=== PATIENT | female | born 1955 | race Caucasian/White ===

== ENCOUNTER 2021-11-05 12:15 | Inpatient (IN) | payer MEDICARE ==
[2021-11-05 13:02] LABS: #Basophils 0.1 10x3/uL (0.0-0.2); #Eosinphils 0.1 10x3/uL (0.0-0.5); #Monocytes 0.6 10x3/uL (0.0-1.1); #Neutrophils 12.6 10x3/uL (1.5-8.4); %Basophils 0.6 % (0.0-2.0); %Eosinophils 0.4 % (0.0-6.0); %Lymphocytes 5.4 % (18.0-47.0); %Monocytes 4.2 % (0.0-10.0); %Neutrophils 88.8 % (40.0-75.0); Mean Corpuscular HGB CONC 31.9 g/dL (32.0-36.0); Mean Corpuscular Hemoglobin 28.7 pg (27.0-33.0); Mean Corpuscular Volume 90.1 fl (81.6-98.3); Mean Platelet Volume 11.8 fl (7.4-10.4); Platelet Count 262 10x3/uL (150-450); Red Blood Cell (RBC) Count 4.53 10x6/uL (3.90-5.03); White Blood Cell (WBC) Count 14.2 10x3/uL (3.5-10.5)
[2021-11-05 13:21] LABS: ALT (SGPT) 16 U/L (8-55); AST (SGOT) 15 U/L (5-34); Alkaline Phosphatase 198 U/L (40-110); Anion Gap 23 mmol/L (10-20); BUN (Urea Nitrogen) 37 mg/dL (9.8-20.1); Calc. Creatinine Clearance 0 mL/min (70-130); Carbon Dioxide 20 mmol/L (23-31); Chloride 94 mmol/L (98-107); Globulin 2.3 g/dL (2.4-3.5); Lipase 12 U/L (8-78); Potassium 5.4 mmol/L (3.5-5.1); Protein, Total 6.3 g/dL (5.8-8.1); Sodium 132 mmol/L (136-145)
[2021-11-05 13:23] LABS: Actual Bicarbonate (HCO3v) 18 mEq/L (22-28); Base Excess -7.5 mEq/L (-2.0 to +3.0); Calcium, Ionized (venous) 1.04 mmol/L (1.16-1.32); Chloride (VBG) 96 mmol/L (98-106); Potassium (VBG) 5.25 mmol/L (3.70-5.30); Puncture Site Other Site; RapidComm Collect By CBN; Sodium 130.8 mmol/L (133-146); pH (venous) 7.32 (7.32-7.43)
[2021-11-05 13:39] LABS: Glucose 747 mg/dL (80-115)
[2021-11-05] MEDS ORDERED: Ondansetron PF 4 MG/2 ML Vial ONE (13:42)
[2021-11-05] MEDS ORDERED: INSULIN REGULAR IN 0.9 % NACL 100 UNIT/100 ML BAG ONE (13:57)
[2021-11-05] MEDS ORDERED: NS 0.9% w/ 20 MEQ KCL 1,000 ML IV PRN ×2 (14:08)
[2021-11-05] MEDS ORDERED: Sodium Chloride 0.9% 1,000 ML IV PRN ×4 (14:08)
[2021-11-05] MEDS ORDERED: Dextrose 5 %-0.45 % NaCl 1,000 ML IV PRN (14:08)
[2021-11-05] MEDS ORDERED: Electrolyte Replacement Protocol 1 EACH IVPB PRN (14:08)
[2021-11-05 15:00] LABS: Anion Gap 21 mmol/L (10-20); BUN (Urea Nitrogen) 38 mg/dL (9.8-20.1); Calc. Creatinine Clearance 0 mL/min (70-130); Calcium 8.8 mg/dL (7.8-10.44); Carbon Dioxide 19 mmol/L (23-31); Chloride 97 mmol/L (98-107); Potassium 5.3 mmol/L (3.5-5.1); Sodium 132 mmol/L (136-145)
[2021-11-05 15:12] LABS: Glucose 788 mg/dL (80-115)
[2021-11-05] MEDS ORDERED: INSULIN REGULAR IN 0.9 % NACL 100 UNIT in Premix Bag 1 BAG IVPB SCH (15:30)
[2021-11-05 16:23] VITALS: BMI 26.4
[2021-11-05 16:36] LABS: Lactic Acid 3.9 mmol/L (0.5-2.2)
[2021-11-05 17:20] LABS: Bilirubin Neg (Negative); Blood, Urine 25 (Negative); Clarity Slightly Cloudy (Clear); Glucose, Urine (Dipstick) >=1000 mg/dL (Negative); Ketone, Urine 15 mg/dL (Negative); Leukocyte Negative (Negative); Nitrite Positive (Negative); Protein, Urine (Dipstick) 15 mg/dl (Neg-Trace); Specific Gravity, Urine 1.015 (1.002-1.036); Urobilinogen Normal mg/dL (Less than 2)
[2021-11-05 17:26] LABS: Squamous Epithelial 0-3 HPF (0-3)
[2021-11-05 17:27] LABS: Bacteria/HPF 2+ HPF (None Seen)
[2021-11-05] MEDS ORDERED: cefTRIAXone\\ROCEPHIN 1 GM in Sodium Chloride 0.9% 100 ML IVPB SCH (18:00)
[2021-11-05] MEDS ORDERED: Dextrose 50% Abboject 50 ML SYRINGE SLOW IVP PRN (18:35)
[2021-11-05] MEDS ORDERED: Dextrose 5% in Water 1,000 ML IV PRN (18:35)
[2021-11-05] MEDS ORDERED: Insulin Regular 300 UNITS/3 ML VIAL SC PRN (18:35)
[2021-11-05 18:39] LABS: Anion Gap 13 mmol/L (10-20); BUN (Urea Nitrogen) 33 mg/dL (9.8-20.1); Calc. Creatinine Clearance 46 mL/min (70-130); Calcium 7.9 mg/dL (7.8-10.44); Carbon Dioxide 21 mmol/L (23-31); Chloride 109 mmol/L (98-107); Glucose 295 mg/dL (80-115); Sodium 139 mmol/L (136-145)
[2021-11-05] MEDS ORDERED: Losartan 25 MG TAB PO SCH (21:00)
[2021-11-05] MEDS ORDERED: Ezetimibe 10 MG TAB PO SCH (21:00)
[2021-11-05] MEDS ORDERED: Aspirin 81 mg Enteric Coated Tablet PO SCH (21:00)
[2021-11-05] MEDS: Calcium Carbonate 600 MG + Vit D TAB PO SCH (21:38)
[2021-11-05] MEDS: D5 1/2 NS w/20 mEq KCL 1,000 ML IV PRN (22:06)
[2021-11-05 22:46] LABS: Anion Gap 12 mmol/L (10-20); BUN (Urea Nitrogen) 29 mg/dL (9.8-20.1); Calc. Creatinine Clearance 55 mL/min (70-130); Calcium 7.8 mg/dL (7.8-10.44); Carbon Dioxide 22 mmol/L (23-31); Chloride 113 mmol/L (98-107); Glucose 117 mg/dL (80-115); Potassium 4.6 mmol/L (3.5-5.1); Sodium 142 mmol/L (136-145)
[2021-11-06] MEDS: D5 1/2 NS w/20 mEq KCL 1,000 ML IV PRN ×2 (02:09→06:42)
[2021-11-06 04:31] LABS: Phosphorus 2.5 mg/dL (2.3-4.7)
[2021-11-06 04:34] LABS: Anion Gap 13 mmol/L (10-20); BUN (Urea Nitrogen) 26 mg/dL (9.8-20.1); Calc. Creatinine Clearance 59 mL/min (70-130); Calcium 7.5 mg/dL (7.8-10.44); Carbon Dioxide 19 mmol/L (23-31); Chloride 112 mmol/L (98-107); Glucose 210 mg/dL (80-115); Magnesium 2.9 mg/dL (1.6-2.6); Potassium 4.8 mmol/L (3.5-5.1); Sodium 139 mmol/L (136-145)
[2021-11-06] MEDS ORDERED: Levothyroxine Sodium 125 MCG TAB PO SCH (06:00)
[2021-11-06] MEDS ORDERED: FLUoxetine HCl 20 MG CAP PO SCH (09:00)
[2021-11-06] MEDS: Calcium Carbonate 600 MG + Vit D TAB PO SCH (09:19)
== END 2021-11-06 12:20 | disposition home or self-care (01) | DRG 919 ==
LOC: CSHERS 12:15 → CSHIMCU 14:59
PROVIDERS: ADMIT Hospitalist; ATTEND Hospitalist
DX: T85.898A Other specified complication of other internal prosthetic devices, implants and grafts, initial encounter (principal); E10.10 Type 1 diabetes mellitus with ketoacidosis without coma; N39.0 Urinary tract infection, site not specified; N17.9 Acute kidney failure, unspecified; E03.9 Hypothyroidism, unspecified; I10 Essential (primary) hypertension; M81.0 Age-related osteoporosis without current pathological fracture; E78.5 Hyperlipidemia, unspecified; E87.5 Hyperkalemia; E10.65 Type 1 diabetes mellitus with hyperglycemia; F32.A Depression, unspecified; Z20.822 Contact with and (suspected) exposure to COVID-19; Z90.49 Acquired absence of other specified parts of digestive tract; Z86.011 Personal history of benign neoplasm of the brain; Z90.710 Acquired absence of both cervix and uterus; Z98.890 Other specified postprocedural states; Z79.4 Long term (current) use of insulin; Z88.8 Allergy status to other drugs, medicaments and biological substances; Z91.041 Radiographic dye allergy status; Z91.013 Allergy to seafood; Z88.5 Allergy status to narcotic agent; Z79.899 Other long term (current) drug therapy; Z79.82 Long term (current) use of aspirin; Z79.891 Long term (current) use of opiate analgesic
CPT/HCPCS: 36415; 36416; 71045; 80048; 80053; 81001; 82010; 82805; 83605; 83690; 83735; 84100; 84484; 85025; 93005; 94760; 96361; 96365; 96375; J0696; J1815; J2405; J3480; J3490; J7050; U0003; U0005

== ENCOUNTER 2022-08-20 09:43 | Outpatient (CLI) | payer MEDICARE | END 2022-08-20 09:44 | disposition home or self-care (01) | LOC: CSHMRI 09:43 | PROVIDERS: ATTEND Neurological Surgery | DX: G93.9 Disorder of brain, unspecified (principal) | CPT/HCPCS: 70553; 82565 ==

== ENCOUNTER 2022-11-23 14:21 | Emergency (ER) | payer MEDICARE | END 2022-11-23 15:37 | disposition home or self-care (01) | LOC: CSHERS 14:21 | DX: R05.1 Acute cough (principal); E10.9 Type 1 diabetes mellitus without complications; E03.9 Hypothyroidism, unspecified; I10 Essential (primary) hypertension | CPT/HCPCS: 71045; 93005; 93010 ==

== ENCOUNTER 2023-01-31 08:49 | Inpatient (IN) | payer MEDICARE ==
[2023-01-31 09:49] LABS: Actual Bicarbonate (HCO3v) 17.2 mEq/L (22-28); Base Excess -8.9 mEq/L (-2 - +2); Calcium, Ionized (venous) 1.06 mmol/L (1.16-1.32); Chloride (VBG) 97 mmol/L (98-106); Hematocrit-VBG 44 % (36.0-47.0); Hemoglobin (Hb) 14.8 g/dL (11.7-16.1); Potassium (VBG) 3.48 mmol/L (3.70-5.30); Puncture Site Other Site; RapidComm Collect By CBN; Sodium 134.3 mmol/L (133-146); pH (venous) 7.275 (7.32-7.43)
[2023-01-31 10:09] LABS: #Basophils 0.1 10x3/uL (0.0-0.2); #Eosinphils 0.1 10x3/uL (0.0-0.5); #Monocytes 0.7 10x3/uL (0.0-1.1); #Neutrophils 13.2 10x3/uL (1.5-8.4); %Basophils 0.6 % (0.0-2.0); %Eosinophils 0.8 % (0.0-6.0); %Lymphocytes 11.3 % (18.0-47.0); %Monocytes 4.3 % (0.0-10.0); %Neutrophils 82.4 % (40.0-75.0); Hematocrit 42.7 % (34.9-44.5); Hemoglobin 13.8 g/dL (12.0-15.5); Mean Corpuscular HGB CONC 32.3 g/dL (32.0-36.0); Mean Corpuscular Hemoglobin 29.2 pg (27.0-33.0); Mean Corpuscular Volume 90.5 fl (81.6-98.3); Mean Platelet Volume 11.7 fl (7.4-10.4); Platelet Count 295 10x3/uL (150-450); RBC Distribution Width 14.5 % (11.5-14.5); Red Blood Cell (RBC) Count 4.72 10x6/uL (3.90-5.03)
[2023-01-31 10:11] LABS: ALT (SGPT) 20 U/L (8-55); AST (SGOT) 24 U/L (5-34); Alkaline Phosphatase 117 U/L (40-110); Anion Gap 23 mmol/L (10-20); BUN (Urea Nitrogen) 18 mg/dL (9.8-20.1); Bilirubin, Total 0.8 mg/dL (0.2-1.2); Calc. Creatinine Clearance 0 mL/min (70-130); Carbon Dioxide 18 mmol/L (23-31); Chloride 97 mmol/L (98-107); Estimated GFR 31; Globulin 2.5 g/dL (2.4-3.5); Lipase 11 U/L (8-78); Potassium 3.8 mmol/L (3.5-5.1); Protein, Total 6.5 g/dL (5.8-8.1); Sodium 134 mmol/L (136-145)
[2023-01-31 10:13] LABS: Troponin I Less than 0.010 ng/mL (< 0.028)
[2023-01-31 10:14] LABS: Glucose 500 mg/dL (80-115)
[2023-01-31 10:19] LABS: Bilirubin Neg (Negative); Blood, Urine 10 (Negative); Clarity Clear (Clear); Glucose, Urine (Dipstick) >=1000 mg/dL (Negative); Ketone, Urine 150 mg/dL (Negative); Leukocyte 25 (Negative); Nitrite Negative (Negative); Protein, Urine (Dipstick) 30 mg/dl (Neg-Trace); Urobilinogen Normal mg/dL (Less than 2)
[2023-01-31 10:28] LABS: SARS-CoV-2 NAA Rapid Test Not Detected (NotDetected)
[2023-01-31] MEDS ORDERED: Potassium Chloride 20 MEQ TAB ONE (10:30)
[2023-01-31 10:34] LABS: Bacteria/HPF None Seen HPF (None Seen); CAUTI Indications for Culture Alt mental st,lethar; RBC/HPF 0-3 HPF (0-3); Urine Culture Reflex No No; WBC/HPF 0-3 HPF (0-3)
[2023-01-31 12:14] VITALS: BMI 25.0
[2023-01-31] MEDS ORDERED: NS 0.9% w/ 20 MEQ KCL 1,000 ML IV PRN ×2 (12:41)
[2023-01-31] MEDS ORDERED: Dextrose 50% Abboject 50 ML SYRINGE SLOW IVP PRN (12:41)
[2023-01-31] MEDS ORDERED: Sodium Chloride 0.9% 1,000 ML IV PRN ×4 (12:41)
[2023-01-31] MEDS ORDERED: Electrolyte Replacement Protocol IVPB PRN (12:41)
[2023-01-31] MEDS ORDERED: HumaLOG 300 UNITS/3 ML VIAL SC PRN (12:44)
[2023-01-31] MEDS ORDERED: Acetaminophen 325 MG TAB PO PRN (12:49)
[2023-01-31] MEDS ORDERED: Ondansetron ODT 4 MG TAB PO PRN (12:49)
[2023-01-31 13:06] LABS: Lactic Acid 1.9 mmol/L (0.5-2.2)
[2023-01-31 14:17] LABS: Anion Gap 15 mmol/L (10-20); BUN (Urea Nitrogen) 13 mg/dL (9.8-20.1); Calc. Creatinine Clearance 53 mL/min (70-130); Calcium 8.2 mg/dL (7.8-10.44); Carbon Dioxide 18 mmol/L (23-31); Chloride 103 mmol/L (98-107); Estimated GFR 52; Glucose 313 mg/dL (80-115); Sodium 131 mmol/L (136-145)
[2023-01-31 14:26] LABS: Potassium 5.1 mmol/L (3.5-5.1)
[2023-01-31] MEDS: Heparin 5,000 UNITS/ML VIAL SC SCH ×2 (15:47→20:37)
[2023-01-31] MEDS: Dextrose 5 %-0.45 % NaCl 1,000 ML IV PRN ×2 (16:04→20:05)
[2023-01-31] MEDS: HumaLOG 300 UNITS/3 ML VIAL SC PRN ×4 (17:20→22:20)
[2023-01-31 17:27] LABS: Anion Gap 12 mmol/L (10-20); BUN (Urea Nitrogen) 12 mg/dL (9.8-20.1); Calc. Creatinine Clearance 57 mL/min (70-130); Calcium 7.9 mg/dL (7.8-10.44); Carbon Dioxide 22 mmol/L (23-31); Chloride 108 mmol/L (98-107); Estimated GFR 56; Glucose 241 mg/dL (80-115); Potassium 4.6 mmol/L (3.5-5.1); Sodium 137 mmol/L (136-145)
[2023-01-31] MEDS: Ezetimibe 10 MG TAB PO SCH (20:36)
[2023-01-31] MEDS: QUEtiapine 25 MG TAB PO SCH (20:37)
[2023-01-31] MEDS: Aspirin 81 mg Enteric Coated Tablet PO SCH (20:37)
[2023-01-31] MEDS ORDERED: Famotidine 20 MG TAB PO SCH ×2 (21:00)
[2023-01-31] MEDS ORDERED: Losartan 25 MG TAB PO SCH (21:00)
[2023-01-31 21:10] LABS: Anion Gap 12 mmol/L (10-20); BUN (Urea Nitrogen) 14 mg/dL (9.8-20.1); Calc. Creatinine Clearance 54 mL/min (70-130); Calcium 8.3 mg/dL (7.8-10.44); Carbon Dioxide 21 mmol/L (23-31); Chloride 108 mmol/L (98-107); Estimated GFR 53; Glucose 172 mg/dL (80-115); Potassium 4.2 mmol/L (3.5-5.1); Sodium 137 mmol/L (136-145)
[2023-01-31] MEDS: D5 1/2 NS w/20 mEq KCL 1,000 ML IV PRN (21:19)
[2023-02-01] MEDS: D5 1/2 NS w/20 mEq KCL 1,000 ML IV PRN (01:52)
[2023-02-01] MEDS: HumaLOG 300 UNITS/3 ML VIAL SC PRN ×7 (03:05→19:59)
[2023-02-01 03:21] LABS: #Basophils 0.1 10x3/uL (0.0-0.2); #Eosinphils 0.3 10x3/uL (0.0-0.5); #Monocytes 0.7 10x3/uL (0.0-1.1); #Neutrophils 4.9 10x3/uL (1.5-8.4); %Basophils 0.7 % (0.0-2.0); %Eosinophils 4.3 % (0.0-6.0); %Lymphocytes 22.9 % (18.0-47.0); %Monocytes 8.5 % (0.0-10.0); %Neutrophils 63.2 % (40.0-75.0); Hematocrit 31.6 % (34.9-44.5); Hemoglobin 10.4 g/dL (12.0-15.5); Mean Corpuscular HGB CONC 32.9 g/dL (32.0-36.0); Mean Corpuscular Hemoglobin 29.8 pg (27.0-33.0); Mean Corpuscular Volume 90.5 fl (81.6-98.3); Mean Platelet Volume 11.2 fl (7.4-10.4); Platelet Count 194 10x3/uL (150-450); RBC Distribution Width 14.8 % (11.5-14.5); Red Blood Cell (RBC) Count 3.49 10x6/uL (3.90-5.03); White Blood Cell (WBC) Count 7.7 10x3/uL (3.5-10.5)
[2023-02-01 03:55] LABS: Phosphorus 2.3 mg/dL (2.3-4.7)
[2023-02-01 03:56] LABS: Anion Gap 16 mmol/L (10-20); BUN (Urea Nitrogen) 13 mg/dL (9.8-20.1); Calc. Creatinine Clearance 61 mL/min (70-130); Calcium 7.7 mg/dL (7.8-10.44); Carbon Dioxide 16 mmol/L (23-31); Chloride 109 mmol/L (98-107); Estimated GFR 61; Glucose 268 mg/dL (80-115); Magnesium 1.5 mg/dL (1.6-2.6); Potassium 5.4 mmol/L (3.5-5.1); Sodium 136 mmol/L (136-145)
[2023-02-01] MEDS: Dextrose 5 %-0.45 % NaCl 1,000 ML IV PRN ×2 (04:10→08:06)
[2023-02-01] MEDS ORDERED: Magnesium 2 GM/50 ML(in water) 2 GM in Premix Bag 1 BAG IVPB SCH (04:15)
[2023-02-01] MEDS: Levothyroxine Sodium 100 MCG TAB PO SCH (05:00)
[2023-02-01 07:25] LABS: Anion Gap 13 mmol/L (10-20); BUN (Urea Nitrogen) 10 mg/dL (9.8-20.1); Calc. Creatinine Clearance 65 mL/min (70-130); Calcium 7.8 mg/dL (7.8-10.44); Carbon Dioxide 18 mmol/L (23-31); Chloride 110 mmol/L (98-107); Estimated GFR 66; Glucose 190 mg/dL (80-115); Potassium 4.3 mmol/L (3.5-5.1); Sodium 137 mmol/L (136-145)
[2023-02-01] MEDS: FLUoxetine HCl 20 MG CAP PO SCH (08:06)
[2023-02-01] MEDS: Heparin 5,000 UNITS/ML VIAL SC SCH ×3 (08:06→21:50)
[2023-02-01 12:23] LABS: Anion Gap 12 mmol/L (10-20); BUN (Urea Nitrogen) 8 mg/dL (9.8-20.1); Calc. Creatinine Clearance 71 mL/min (70-130); Carbon Dioxide 22 mmol/L (23-31); Chloride 109 mmol/L (98-107); Estimated GFR 74; Glucose 213 mg/dL (80-115); Potassium 4.5 mmol/L (3.5-5.1); Sodium 138 mmol/L (136-145)
[2023-02-01] MEDS: QUEtiapine 25 MG TAB PO SCH (21:45)
[2023-02-01] MEDS: Aspirin 81 mg Enteric Coated Tablet PO SCH (21:45)
[2023-02-01] MEDS: Ezetimibe 10 MG TAB PO SCH (21:45)
[2023-02-02] MEDS: HumaLOG 300 UNITS/3 ML VIAL SC PRN ×3 (01:10→11:51)
[2023-02-02 03:04] LABS: Campy jejuni + coli by PCR Negative (Negative); STEC Shiga Toxin 1+2 Negative (Negative); Salmonella spp. by PCR Negative (Negative); Shigella spp + EIEC by PCR Negative (Negative)
[2023-02-02 05:50] LABS: Anion Gap 14 mmol/L (10-20); BUN (Urea Nitrogen) 10 mg/dL (9.8-20.1); Calc. Creatinine Clearance 64 mL/min (70-130); Calcium 8.2 mg/dL (7.8-10.44); Carbon Dioxide 21 mmol/L (23-31); Chloride 109 mmol/L (98-107); Estimated GFR 65; Glucose 114 mg/dL (80-115); Magnesium 1.8 mg/dL (1.6-2.6); Potassium 4.4 mmol/L (3.5-5.1); Sodium 140 mmol/L (136-145)
[2023-02-02] MEDS ORDERED: Magnesium 2 GM/50 ML(in water) 2 GM in Premix Bag 1 BAG IVPB SCH (06:00)
[2023-02-02] MEDS: Levothyroxine Sodium 100 MCG TAB PO SCH (06:45)
[2023-02-02] MEDS: Heparin 5,000 UNITS/ML VIAL SC SCH (08:46)
[2023-02-02] MEDS: FLUoxetine HCl 20 MG CAP PO SCH (08:46)
[2023-02-02 16:41] VITALS: BP 133/74; TEMP 98
== END 2023-02-02 17:29 | disposition home or self-care (01) | DRG 638 ==
LOC: CSHERS 08:49 → CSHIMCU 10:36 → CSHTELE 02-01 17:32
PROVIDERS: ADMIT Family Medicine; ATTEND Emergency Medicine
DX: E10.10 Type 1 diabetes mellitus with ketoacidosis without coma (principal); N17.9 Acute kidney failure, unspecified; F32.A Depression, unspecified; E87.6 Hypokalemia; E86.0 Dehydration; R19.7 Diarrhea, unspecified; E03.9 Hypothyroidism, unspecified; Z88.5 Allergy status to narcotic agent; Z91.041 Radiographic dye allergy status; Z88.6 Allergy status to analgesic agent; Z91.013 Allergy to seafood; Z79.82 Long term (current) use of aspirin; Z79.899 Other long term (current) drug therapy; Z79.890 Hormone replacement therapy; Z90.49 Acquired absence of other specified parts of digestive tract; Z98.890 Other specified postprocedural states
CPT/HCPCS: 36415; 36416; 71045; 80048; 80053; 81001; 82010; 82805; 83605; 83690; 83735; 83880; 83930; 84100; 84484; 85025; 87040; 87324; 87449; 87505; 93005; 94760; 94762; 96360; J1644; J1815; J3475; J3480; J7042; J7050